=== PATIENT | female | born 2000 | race Hispanic/Latino ===

== ENCOUNTER 2021-12-10 07:28 | Day surgery (SDC) | payer OTHER ==
[2021-12-10 08:21] VITALS: BMI 50.1
[2021-12-10 09:31] LABS: Fetal Membranes Rupture No Membranes Rupture (No Rupture)
[2021-12-10] MEDS ORDERED: hydrALAZINE 20 MG/ML VIAL SLOW IVP PRN (10:10)
== END 2021-12-10 10:30 | disposition home or self-care (01) ==
LOC: CSHLD/OP 07:28
PROVIDERS: ATTEND Obstetrics & Gynecology
DX: O99.891 Other specified diseases and conditions complicating pregnancy (principal); N89.8 Other specified noninflammatory disorders of vagina; O47.1 False labor at or after 37 completed weeks of gestation; O99.013 Anemia complicating pregnancy, third trimester; Z3A.39 39 weeks gestation of pregnancy; Z79.899 Other long term (current) drug therapy
CPT/HCPCS: 84112

== ENCOUNTER 2021-12-14 00:40 | Day surgery (SDC) | payer OTHER ==
[2021-12-14 01:12] VITALS: BMI 51.7
[2021-12-14] MEDS ORDERED: hydrALAZINE 20 MG/ML VIAL SLOW IVP PRN (01:53)
== END 2021-12-14 04:00 | disposition home or self-care (01) ==
LOC: CSHLD/OP 00:40
PROVIDERS: ATTEND Family Medicine
DX: O47.1 False labor at or after 37 completed weeks of gestation (principal); Z3A.40 40 weeks gestation of pregnancy
CPT/HCPCS: 99283

== ENCOUNTER 2021-12-15 08:50 | Inpatient (IN) | payer MEDICAID, OTHER, SELFPAY ==
[~2021-12-15 08:50] MED LIST: Bupivacaine 0.25% HCL 30 ML VIAL ONE; Bupivacaine HCl 0.5%/Epinephrine 1:200,000/PF 30 ml Vial ONE
[2021-12-15] MEDS ORDERED: hydrALAZINE 20 MG/ML VIAL SLOW IVP PRN (09:40)
[2021-12-15] MEDS ORDERED: Carboprost 250 MCG/ML AMP IM PRN (09:40)
[2021-12-15] MEDS ORDERED: Butorphanol Tartrate 1 MG/ML VIAL SLOW IVP PRN (09:40)
[2021-12-15] MEDS ORDERED: HYDROcodone/Acetaminophen 5/325 mg Tablet PO PRN (09:40)
[2021-12-15] MEDS ORDERED: Lidocaine 1% (PF) 30 ML VIAL SC PRN (09:40)
[2021-12-15] MEDS ORDERED: Diphenoxylate HCl/Atropine Tablet PO PRN (09:40)
[2021-12-15] MEDS ORDERED: Methylergonovine 0.2 MG/ML VIAL IM PRN (09:40)
[2021-12-15] MEDS ORDERED: Promethazine HCl 25 MG/ML VIAL IM PRN ×2 (09:40→13:51)
[2021-12-15] MEDS ORDERED: Acetaminophen 500 MG TAB PO PRN (09:40)
[2021-12-15] MEDS ORDERED: Ondansetron PF 4 MG/2 ML Vial IVP PRN ×2 (09:40→13:51)
[2021-12-15] MEDS ORDERED: Misoprostol 200 MCG TAB PR PRN (09:40)
[2021-12-15] MEDS ORDERED: Ibuprofen 800 MG TAB PO PRN (09:40)
[2021-12-15] MEDS: Lactated Ringer's 1,000 ML IV SCH (09:45)
[2021-12-15] MEDS ORDERED: NS w/ Oxytocin 30 units 500 ML IV SCH ×2 (09:45)
[2021-12-15 10:15] LABS: Hemoglobin 10.6 g/dL (12.0-15.5); Mean Corpuscular HGB CONC 31.7 g/dL (32.0-36.0); Mean Corpuscular Hemoglobin 24.3 pg (27.0-33.0); Mean Corpuscular Volume 76.4 fl (81.6-98.3); Mean Platelet Volume 9.5 fl (7.4-10.4); Platelet Count 358 10x3/uL (150-450); Red Blood Cell (RBC) Count 4.37 10x6/uL (3.90-5.03); White Blood Cell (WBC) Count 10.8 10x3/uL (3.5-10.5)
[2021-12-15 10:21] VITALS: BMI 50.6
[2021-12-15 10:57] LABS: Hep B Surf Ag Non-Reactive S/CO (NonReactive); Syphilis Antibody Nonreactive (Nonreactive); Syphilis Antibody Index 0.04 S/CO (<1.00 Non-Reactive)
[2021-12-15 11:04] LABS: HBSAg Index 0.16 S/CO (0-0.99)
[2021-12-15] MEDS ORDERED: Fentanyl 2 mcg/Bup 0.1% Cadd 100 ML ONE (12:05)
[2021-12-15 13:03] LABS: SARS-CoV-2 NAA Rapid Test Not Detected (NotDetected)
[2021-12-15] MEDS ORDERED: Moisturizing Cream (Eucerin) 113 GM JAR TOP PRN (13:51)
[2021-12-15] MEDS ORDERED: ePHEDrine Sulfate 50 MG/10 ML VIAL SLOW IVP PRN (13:51)
[2021-12-15] MEDS ORDERED: Acetaminophen 325 MG TAB PO PRN (13:51)
[2021-12-15] MEDS ORDERED: Lactated Ringer's 500 ML IV PRN (13:51)
[2021-12-15] MEDS ORDERED: diphenhydrAMINE 50 MG/ML VIAL IVP PRN (13:51)
[2021-12-15] MEDS ORDERED: Naloxone HCl 0.4 mg/ml Vial IVP PRN ×2 (13:51)
[2021-12-15] MEDS ORDERED: Fentanyl 2 mcg/Bupivacaine 0.1% Cassette 100 ML EPIDURAL SCH (14:00)
[2021-12-15] MEDS ORDERED: Communication Order-Pharmacy FS SCH (14:00)
[2021-12-15] MEDS ORDERED: Ampicillin 2 GM in Sodium Chloride 0.9% 100 ML IVPB SCH (23:59)
[2021-12-16] MEDS ORDERED: NS w/ Oxytocin 30 units 500 ML IV SCH (04:29)
[2021-12-16] MEDS ORDERED: Promethazine HCl 25 MG/ML VIAL IM PRN (04:29)
[2021-12-16] MEDS ORDERED: Benzocaine-Menthol 82.5 ML CAN TOP PRN (04:29)
[2021-12-16] MEDS ORDERED: Boostrix 0.5 ML (Tdap) VIAL IM ONE (04:29)
[2021-12-16] MEDS ORDERED: Ondansetron PF 4 MG/2 ML Vial IVP PRN (04:29)
[2021-12-16] MEDS ORDERED: Lanolin Ointment 7 GM TUBE TOP PRN (04:29)
[2021-12-16] MEDS ORDERED: hydrALAZINE 20 MG/ML VIAL SLOW IVP PRN (04:29)
[2021-12-16] MEDS ORDERED: Milk Of Magnesia 30 ML UDCUP PO PRN (04:29)
[2021-12-16] MEDS ORDERED: Bisacodyl 10 MG SUPP PR PRN (04:29)
[2021-12-16] MEDS ORDERED: diphenhydrAMINE 25 MG CAP PO PRN (04:29)
[2021-12-16] MEDS: Ampicillin 2 GM VIAL ONE ×2 (05:20→05:25)
[2021-12-16] MEDS: Ibuprofen 800 MG TAB PO SCH ×3 (05:46→21:15)
[2021-12-16] MEDS ORDERED: Ampicillin 2 GM in Sodium Chloride 0.9% 100 ML IVPB SCH (06:00)
[2021-12-16] MEDS: Lactated Ringer's 1,000 ML IV SCH ×2 (07:33→07:34)
[2021-12-16] MEDS ORDERED: Witch Hazel-Glycerin 1 EACH JAR TOP PRN (07:43)
[2021-12-16] MEDS: Docusate 100 MG CAP PO SCH ×2 (08:08→21:14)
[2021-12-16] MEDS: Prenatal Vitamin 1 TAB PO SCH (08:08)
[2021-12-16] MEDS: HYDROcodone/Acetaminophen 5/325 mg Tablet PO PRN ×3 (08:09→17:34)
[2021-12-16] MEDS: Ferrous Sulfate 325 MG TAB PO SCH ×2 (08:09→17:21)
[2021-12-17] MEDS: Ibuprofen 800 MG TAB PO SCH ×2 (05:29→14:15)
[2021-12-17 07:53] VITALS: BP 108/58; TEMP 97.6
[2021-12-17] MEDS: Prenatal Vitamin 1 TAB PO SCH (07:53)
[2021-12-17] MEDS: Docusate 100 MG CAP PO SCH (07:53)
[2021-12-17] MEDS: Ferrous Sulfate 325 MG TAB PO SCH ×2 (08:11→16:24)
[2021-12-17] MEDS: HYDROcodone/Acetaminophen 5/325 mg Tablet PO PRN ×2 (16:29)
== END 2021-12-17 18:20 | disposition home or self-care (01) | DRG 807 ==
LOC: CSHLD 08:50 → CSHPP 12-16 04:20
PROVIDERS: ADMIT Family Medicine; ATTEND Family Medicine
PROC: 10E0XZZ Delivery of Products of Conception, External Approach (ICD-10-PCS; principal; 2021-12-16)
PROC: 0KQM0ZZ Repair Perineum Muscle, Open Approach (ICD-10-PCS; 2021-12-16)
PROC: 10H07YZ Insertion of Other Device into Products of Conception, Via Natural or Artificial Opening (ICD-10-PCS; 2021-12-16)
DX: O42.02 Full-term premature rupture of membranes, onset of labor within 24 hours of rupture (principal); Z37.0 Single live birth; Z20.822 Contact with and (suspected) exposure to COVID-19; Z3A.40 40 weeks gestation of pregnancy; E66.01 Morbid (severe) obesity due to excess calories; O99.214 Obesity complicating childbirth; O77.0 Labor and delivery complicated by meconium in amniotic fluid; O70.1 Second degree perineal laceration during delivery
CPT/HCPCS: 36415; 51702; 85027; 86780; 86850; 86900; 86901; 87340; 88307; J0290; J0595; J1580; J2001; J2590; J3490; J7120; S0020; U0002